=== PATIENT | male | born 1955 | race Caucasian/White ===

== ENCOUNTER 2022-02-14 08:06 | Outpatient (CLI) | payer MEDICARE | END 2022-02-14 23:59 | disposition home or self-care (01) | LOC: LAB 08:06 | PROVIDERS: ATTEND Surgery | DX: Z01.812 Encounter for preprocedural laboratory examination (principal); Z20.822 Contact with and (suspected) exposure to COVID-19 ==

== ENCOUNTER 2022-02-16 06:07 | Day surgery (SDC) | payer MEDICARE ==
[2022-02-16] MEDS ORDERED: NEOMY/BACITRAC/POLYMI OINT 28.35 GM TUBE ONE (07:00)
[2022-02-16] MEDS ORDERED: LIDOCAINE 1%-EPI 1:100,000 20 ML VIAL ONE (07:00)
[2022-02-16] MEDS ORDERED: BUPIVACAINE PF 0.5% 30 ML VIAL ONE (07:00)
[2022-02-16 07:01] LABS: HEMATOCRIT 46.1 % (36.7-47.1); MEAN CORPUSCULAR HEMOGLOBIN 26.5 uug (23.8-33.4); MEAN CORPUSCULAR VOLUME 80.4 fL (73.0-96.2); PLATELET COUNT (AUTO) 286 K/uL (152-348)
[2022-02-16] MEDS ORDERED: BACITRACIN/POLYMYXIN B OINT 15 GM TUBE ONE (07:01)
[2022-02-16] MEDS ORDERED: ROCURONIUM BROMIDE 50 MG/5 ML VIAL ONE (07:13)
[2022-02-16] MEDS ORDERED: FENTANYL CITRATE 100 MCG/2 ML AMPUL ONE (07:13)
[2022-02-16 07:35] LABS: BILIRUBIN,TOTAL 0.5 mg/dL (0.2-1.0); CREATININE 1.1 mg/dL (0.6-1.3); TOTAL PROTEIN, SERUM 7.6 g/dL (6.4-8.2)
[2022-02-16] MEDS ORDERED: SEVOFLURANE 250 ML BOTTLE ONE (07:42)
[2022-02-16 07:47] LABS: *BILIRUBIN,URIN 2+ (NEGATIVE); *BLOOD, URINE NEGATIVE (NEGATIVE); *CLARITY,URINE CLEAR (CLEAR); *COLOR,URINE YELLOW (YELLOW); *KETONES,URINE TRACE (NEGATIVE); *UROBILINOGEN,URINE 0.2 E.U./dl (NORMAL); LEUKOCYTE ESTERASE ,URINE NEGATIVE (NEGATIVE); NITRITE, URINE NEGATIVE (NEGATIVE); UGLUCOSE 2+ (NEGATIVE)
[2022-02-16 08:05] LABS: RBC,URINE 0-3 /HPF (0-3)
[2022-02-16 08:06] LABS: BACTERIA,URINE FEW /HPF (NONE SEEN); MUCUS,URINE MODERATE /LPF (0-FEW); SQUAMOUS EPITHELIAL CELL,UR FEW /HPF (NONE SEEN)
[2022-02-16] MEDS ORDERED: ACETAMINOPHEN 325 MG TABLET ONE (10:56)
[2022-02-16] MEDS ORDERED: IBUPROFEN 800 MG TABLET PO ONE (11:00)
[2022-02-16] MEDS ORDERED: ACETAMINOPHEN 325 MG TABLET PO ONE (11:00)
[2022-02-16] MEDS ORDERED: GABAPENTIN 300 MG CAPSULE PO ONE (11:00)
== END 2022-02-16 12:06 | disposition home or self-care (01) ==
LOC: DS 06:07
PROVIDERS: ATTEND Surgery
DX: K62.5 Hemorrhage of anus and rectum (principal); K64.8 Other hemorrhoids; K63.89 Other specified diseases of intestine; K58.9 Irritable bowel syndrome, unspecified; K21.9 Gastro-esophageal reflux disease without esophagitis; I11.0 Hypertensive heart disease with heart failure; I50.9 Heart failure, unspecified; I73.9 Peripheral vascular disease, unspecified; Z86.73 Personal history of transient ischemic attack (TIA), and cerebral infarction without residual deficits; Z79.899 Other long term (current) drug therapy; Z98.890 Other specified postprocedural states
CPT/HCPCS: 36415; 45378; 46260; 71045; 80053; 81001; 85025; 85730; 87086; J3010; J3490 ×3; J7040; A4649; A4663